=== PATIENT | male | born 1950 ===

== ENCOUNTER → 2016-09-20 | Outpatient (CLI) | payer MEDICARE, OTHER ==
[~2016-09-20] MED LIST: AMIODARONE HCL200 MG PO; ASPIR-LOW81 MG PO; ATIVAN 0.5MG0.5 MG PO; BUMETANIDE2 MG PO; CENTRUM MEN'S1 EACH PO; COLACE100 MG PO; COQ-10100 MG PO; FLOMAX0.4 MG PO; HUMIBID LA (MU600 MG PO; LABETALOL HCL300 MG PO; LIPITOR10 MG PO; LOPRESSOR25 MG PO; NORCO 5-325 MG1 TAB PO; NORVASC5 MG PO; POTASSIUM CHLO20 ME1 PO; TYLENOL EXTRA500 MG PO; TYLENOL325 MG PO; VITAMIN D1000 UNIT PO
[2016-09-20 17:32] LABS: ANION GAP 11.8 (10.0-19.0); CALCIUM 8.7 mg/dL (8.5-10.5); CREATININE 1.3 mg/dL (0.6-1.3); PHOSPHORUS 2.6 mg/dL (2.5-4.9); POTASSIUM 3.8 mMol/L (3.7-5.1)
== END | disposition disaster alternative care site (69) ==
LOC: LCNC 16:46
PROVIDERS: Internal Medicine Interventional Cardiology
DX: R00.2 Palpitations (principal)

== ENCOUNTER → 2016-10-11 | Outpatient (CLI) | payer MEDICARE, OTHER ==
[2016-10-11 17:02] LABS: ALBUMIN 4.1 gm/dL (3.5-5.0); ANION GAP 8.9 (10.0-19.0); CALCIUM 8.7 mg/dL (8.5-10.5); CREATININE 1.5 mg/dL (0.6-1.3); PHOSPHORUS 2.9 mg/dL (2.5-4.9); POTASSIUM 3.9 mMol/L (3.7-5.1)
== END | disposition disaster alternative care site (69) ==
LOC: LCNC 16:39
PROVIDERS: Internal Medicine Interventional Cardiology
DX: R00.2 Palpitations (principal)

== ENCOUNTER → 2016-10-20 | Outpatient (CLI) | payer MEDICARE, OTHER ==
--- NOTE | ~2016-10-20 | PUL ---
PATIENT'S NAME: ALEXI MATIAS [facility] AGE: 66 Y [address] ROOM: [place] [id number] LOCATION: [facility] ADMIT DATE: 10/20/2016 Pulmonary DISCHARGE DATE: FAMILY PHYSICIAN: Cristina Hsu MD ATTENDING PHYSICIAN: Aldo Khoury NAME OF PROCEDURE: Sleep study PROCEDURE DATE: 10/20/16 TECH: JOSÉ Krishnamurthy TEST #: SDC# [id number] TECHNICAL PARAMETERS: The patient was studied using International 10/20 measuring system. While the patient was studied, there was continuous monitoring of EEG (8 leads), EOG (2 leads), EKG (3 leads), submental EMG (3 leads), tibial (4 leads), respiratory inductive plethysmography (RIP) for thoracic and abdominal effort, oral and nasal airflow with a thermocouple and pressure transducer, and oximetry. The perinatal technician also performed visual and auditory observations noting things like body position, patient's status, breath sounds, artifact, snoring level and patient comments. Continuous sound was monitored using a 2-way speaker system and video monitoring was performed using an infrared camera. Review of the entire study was performed epoch by epoch utilizing a single epoch and multiple epoch capability sleep system. MEDICAL HISTORY: Patient is a 66-year-old gentleman with daytime sleepiness and snoring. SLEEP STAGE SUMMARY: The patient was studied for 517 minutes of which he slept 380 minutes. He fell asleep in 11.5 minutes and slept for a 74% of the night. Sleep architecture revealed a decline in slow wave sleep and a mild decline in REM sleep. RESPIRATORY SUMMARY: Oxygen saturations ranged from 54%-93%, however sats were below 88% for only 8 minutes. There were 57 apneas and 8 hypopneas for an apnea/hypopnea index mildly elevated at 10.3 events per hour. Supine apnea- hypopnea index was 55 events per hour non supine was 1.1 event per hour. EKG SUMMARY: Average heart rate during sleep 64 beats per minute. LIMB MOVEMENT SUMMARY: No clinically relevant periodic limb movements were noted. SUMMARY: Mild obstructive sleep apnea, positional for the most part. The PATIENT'S NAME: ALEXI MATIAS [facility] AGE: 66 Y [address] ROOM: [place] [address] LOCATION: [facility] ADMIT DATE: 10/20/2016 Pulmonary DISCHARGE DATE: FAMILY PHYSICIAN: Cristina Hsu MD ATTENDING PHYSICIAN: Aldo Khoury oxygen saturation of 54% appears to be oximeter malfunction. Patient does not have significant Hypoxemia. PLAN: Suggest position training to help the patient avoid sleeping supine. The patient will receive results from the ordering provider. JESIKA CABRERA MD /[id number] dtt: 10/31/16 1743 , Jesika Cabrera dtd: 10/22/16 1155
== END | disposition disaster alternative care site (69) ==
LOC: GSLP 20:26
DX: G47.10 Hypersomnia, unspecified (principal); G47.33 Obstructive sleep apnea (adult) (pediatric)

== ENCOUNTER → 2017-01-25 | Outpatient (CLI) | payer MEDICARE, OTHER ==
[2017-01-25 16:55] LABS: ALBUMIN 3.8 gm/dL (3.5-5.0); ANION GAP 11.3 (10.0-19.0); CALCIUM 8.9 mg/dL (8.5-10.5); CREATININE 1.6 mg/dL (0.6-1.3); MAGNESIUM 2.1 mg/dL (1.8-2.6); PHOSPHORUS 2.6 mg/dL (2.5-4.9); POTASSIUM 4.3 mMol/L (3.7-5.1)
== END | disposition disaster alternative care site (69) ==
LOC: LCNC 16:31
PROVIDERS: Internal Medicine Interventional Cardiology
DX: Z79.899 Other long term (current) drug therapy (principal)

== ENCOUNTER → 2017-03-09 | Outpatient (CLI) | payer MEDICARE, OTHER | LOC: LCNC 14:33 | DX: E78.5 Hyperlipidemia, unspecified (principal) ==